=== PATIENT | female | born 1980 | race Caucasian/White ===

== ENCOUNTER 2021-09-01 08:53 | Emergency (ER) | payer OTHER ==
--- NOTE | 2021-09-01 10:06 | ED Physician Documentation ---
PD HPI CHEST PAIN - Stated complaint Stated Complaint: CHEST/THROAT PX/TIRED - Chief complaint Chief Complaint: Cardiac - History obtained from History obtained from: Patient, Family - Additional information Additional information: Pt comes to the ED with CC of episodes of pain that start in the back of her throat and radiate to her upper back. Sometimes she has some associated chest discomfort. She states the sensation is brief and a shooting pain. She states she often feels panicky when it happens. Pt has been worked up previously for this, and work-up has been negative. Pt has no pain right now. states that pt seems to have sx when she is under a lot of stress. Pt tearfully agrees, and admits to heavy stress for the past 6 months. They just moved here a few months ago with the [employer]. Pt denies h/o smoking, HTN, or DM. She has had significant weight gain in the past 2 years. H/o CAD in mom's siblings, but not in pt's mom. Siblings were all smokers and otherwise unhealthy, however, pt states, and her mother is not. Review of Systems Ten Systems: 10 systems reviewed and negative Constitutional: reports: Reviewed and negative Eyes: reports: Reviewed and negative Ears: reports: Reviewed and negative Nose: reports: Reviewed and negative Throat: reports: Other (Episodic throat pain) Cardiac: reports: Chest pain / pressure Respiratory: reports: Reviewed and negative GI: reports: Reviewed and negative : reports: Reviewed and negative Skin: reports: Reviewed and negative Musculoskeletal: reports: Reviewed and negative Neurologic: reports: Reviewed and negative Psychiatric: reports: Reviewed and negative Endocrine: reports: Reviewed and negative Immunocompromised: reports: Reviewed and negative PD PAST MEDICAL HISTORY - Past Medical History Past Medical History: Yes Cardiovascular: None Respiratory: None Neuro: Migraines Endocrine/Autoimmune: None GI: GERD, 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 HEENT: None Psych: Anxiety Musculoskeletal: None Derm: None - Past Surgical History Past Surgical History: Yes /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: No - Immunizations Immunizations are current?: Yes PD ED PE NORMAL - Vitals Vital signs reviewed: Yes - General General: Alert and oriented X 3, No acute distress, Well developed/nourished - HEENT HEENT: Atraumatic, PERRL, EOMI, Moist mucous membranes - Neck Neck: Supple, no meningeal sign - Cardiac Cardiac: RRR, No murmur, Strong equal pulses - Respiratory Respiratory: No respiratory distress, Clear bilaterally - Abdomen Abdomen: Soft, Non tender, Non distended - Derm Derm: Normal color, Warm and dry, No rash - Extremities Extremities: No deformity, No edema, No calf tenderness / cord - Neuro Neuro: Alert and oriented X 3, grinder set up operator 2-12 intact, Normal speech - Psych Psych: Normal mood (Occasionally tearful), Normal affect Results - Vitals Vitals: Oxygen O2 Source Room air - EKG (time done) 0905 Rate: Rate (enter#) (66) Rhythm: NSR [place]: Normal Intervals: Normal NH QRS: LVH Ischemia: Normal ST segments, Other Compare to prior EKG: Old EKG unavailable Computer interpretation: Disagree with computer (disagree with inferior ischemia.) - Labs Labs: Laboratory Tests 09/01/21 09/01/21 09/01/21 10:11 10:11 10:11 WBC 7.8 RBC 4.46 Hgb 12.7 Hct 39.2 MCV 87.9 MCH 28.5 MCHC 32.4 RDW 13.2 Plt Count 272 MPV 9.1 Neut # (Auto) 5.5 Lymph # (Auto) 1.9 [place] # (Auto) 0.4 Eos # (Auto) 0.0 Baso # (Auto) 0.0 Absolute Nucleated RBC 0.00 Nucleated RBC % 0.0 Sodium 139 Potassium 4.4 Chloride 106 Carbon Dioxide 24 Anion Gap 9.0 BUN 11 Creatinine 0.9 Estimated GFR (MDRD) 69 L Glucose 105 H Calcium 8.7 Total Bilirubin 0.4 AST 15 ALT 16 Alkaline Phosphatase 42 Troponin I High Sens 2.7 Total Protein 6.8 Albumin 3.6 Globulin 3.2 Albumin/Globulin Ratio 1.1 Lipase 34 - Rads (name of study) CXR Radiology: Final report received, EMP read indepedently, See rad report (nad) PD MEDICAL DECISION MAKING - ED course Complexity details: reviewed results, re-evaluated patient, considered differential, d/w patient, d/w family ED course: The patient was worked up with EKG and laboratory studies. The work-up was negative. Pt was doing well, and less emotionally distraught on re-eval. We have discussed the need for follow-up to discuss stress test. We have also discussed the usual indications for return. Departure - Departure Disposition: Home, Self Care Clinical Impression: Atypical chest pain Condition: Stable Instructions: ED Chest Pain Atypical Unkn Cause Comments: Your laboratory studies all look good, as your EKG and chest x-ray. It is not clear what is causing the pain you have in your throat, chest, and back, but there is no evidence at this time of an emergent cause. Additionally, you are very low risk for cardiac coronary artery disease further lowering the likelihood of this. However, since this is been going on on and off for a year and you do have some family members with history of heart attack, it would be good for you to follow-up with your primary care physician and discuss having a stress test done to close the loop completely on the possibility of coronary artery disease. Please call first thing tomorrow morning to make that appointment. Please also consider whether seeing a mental health provider of some sort would help you with some of the stress and anxiety you are having, and help you to cope more constructively with these. You may discuss this with your primary doctor also. If you develop severe chest pain that is unremitting, especially if associated with severe shortness of breath and nausea, please return to the emergency department immediately. Discharge Date/Time: 09/01/21 11:34
[2021-09-01 10:15] LABS: BASOPHILS % (AUTO) 0.4 %; EOSINOPHILS % (AUTO) 0.5 %; HCT - HEMATOCRIT 39.2 % (37.0-47.0); HGB - HEMOGLOBIN 12.7 g/dL (12.0-16.0); LYMPHOCYTES # (AUTO) 1.9 10^3/uL (1.5-3.5); LYMPHOCYTES % (AUTO) 23.9 %; MEAN CORPUSCULAR HEMOGLOBIN 28.5 pg (27.0-31.0); MEAN CORPUSCULAR HGB CONC 32.4 g/dL (32.0-36.0); MEAN CORPUSCULAR VOLUME 87.9 fL (81.0-99.0); MEAN PLATELET VOLUME 9.1 fL (7.9-10.8); MONOCYTES # (AUTO) 0.4 10^3/uL (0.0-1.0); MONOCYTES % (AUTO) 5.4 %; NEUTROPHILS # (AUTO) 5.5 10^3/uL (1.5-6.6); NEUTROPHILS % (AUTO) 69.5 %; PLT - PLATELET COUNT 272 10^3/uL (130-450); RED BLOOD COUNT 4.46 10^6/uL (4.20-5.40); RED CELL DISTRIBUTION WIDTH 13.2 % (12.0-15.0); WHITE BLOOD COUNT 7.8 x10^3/uL (4.8-10.8)
[2021-09-01 10:27] LABS: ALBUMIN 3.6 g/dL (3.2-5.5); ALBUMIN/GLOBULIN RATIO 1.1 (1.0-2.2); BILIRUBIN,TOTAL 0.4 mg/dL (0.2-1.0); CALCIUM 8.7 mg/dL (8.5-10.3); CREATININE 0.9 mg/dL (0.4-1.0); POTASSIUM 4.4 mmol/L (3.5-5.0); TOTAL PROTEIN 6.8 g/dL (6.7-8.2)
--- NOTE | 2021-09-01 10:32 | XRAY Report ---
PROCEDURE: Chest 1 View X-Ray INDICATIONS: chest pain COMMENTS: CHEST PAIN PRIORS: NONE TECHNIQUE: One view of the chest was acquired. COMPARISON: None FINDINGS: Surgical changes and devices: None. Lungs and pleura: No pleural effusions or pneumothorax. Lungs are clear. Mediastinum: Mediastinal contours appear normal. Heart size is normal. Bones and chest wall: No suspicious bony lesions. Overlying soft tissues appear unremarkable. IMPRESSION: No acute cardiopulmonary abnormality. Reviewed by: Justen Crowder on 09/01/2021 10:31 AM PDT Approved by: Justen Crowder on 09/01/2021 10:31 AM PDT Station ID: [id number]
[2021-09-01 11:07] VITALS: BP 132/83
== END 2021-09-01 11:34 | disposition home or self-care (01) ==
LOC: ED 08:53
DX: R07.89 Other chest pain (principal); Z87.891 Personal history of nicotine dependence
CPT/HCPCS: 36415; 80053; 83690; 84484; 85025; 93005; 99282; 99284

== ENCOUNTER 2022-04-09 19:48 | Emergency (ER) | payer OTHER ==
[2022-04-09] MEDS ORDERED: GLUCAGON 1 MG/ML VIAL IVP STA ×2 (20:04→20:32)
--- NOTE | 2022-04-09 20:16 | ED Physician Documentation ---
History of Present Illness - Stated complaint Stated Complaint: FOOD STUCK IN THROAT - Chief complaint Chief Complaint: General - History obtained from History obtained from: Patient - Additonal information Additional information: 41-year-old woman with history of reflux, has been noncompliant with omeprazole for the last few months and is also bulimic. 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 She been having increasing trouble lately and tonight after swallowing chicken it got stuck and now cannot swallow anything. 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 - Present Medications Home Medications: Ambulatory Orders Medication Instructions Recorded Confirmed Melatonin 5 mg PO HS 09/01/21 04/09/22 Multivitamin/Iron/Folic Acid 1 each PO DAILY 09/01/21 04/09/22 [Centrum Women Tablet] Omeprazole Magnesium 20 mg PO DAILY 09/01/21 04/09/22 Omeprazole 40 mg PO DAILY #30 cap 04/09/22 - Allergies Allergies/Adverse Reactions: Allergies Allergy/AdvReac Type Severity Reaction Status Date / Time No Known Drug Allergies Allergy Verified 04/09/22 19:52 - Social History Does the pt smoke?: No Smoking Status: Never smoker Does the pt drink ETOH?: Yes Does the pt have substance abuse?: No - Immunizations Immunizations are current?: Yes PD ED PE NORMAL - Vitals Vital signs reviewed: Yes - General General: Alert and oriented X 3, No acute distress - HEENT HEENT: Pharynx benign - Neck Neck: Supple, no meningeal sign, No bony TTP - Cardiac Cardiac: RRR, No murmur - Respiratory Respiratory: No respiratory distress, Clear bilaterally - Abdomen Abdomen: Non tender - Back Back: No CVA TTP, No spinal TTP - Derm Derm: Normal color, Warm and dry - Extremities Extremities: No edema, No calf tenderness / cord - Neuro Neuro: Alert and oriented X 3, Normal speech Results - Vitals Vitals: Vital Signs - 24 hr 04/09/22 04/09/22 19:52 21:06 Temperature 36.5 C Heart Rate 100 98 Respiratory 16 16 Rate Blood Pressure 150/90 H 172/102 H O2 Saturation 99 97 Oxygen O2 Source Room air - Labs Labs: Laboratory Tests 04/09/22 20:10 Serum HCG, Qual NEGATIVE PD Medical Decision Making - ED course ED course: 41-year-old woman with recurrent esophageal food impaction. After 2 doses of glucagon the food impaction cleared and she passed a p.o. challenge. Close follow-up advised and we will refill her omeprazole and encouraged her to take it. Departure - Departure Disposition: Home, Self Care Clinical Impression: Esophageal obstruction due to food impaction Condition: Good Record reviewed to determine appropriate education?: Yes Instructions: ED Foreign Body Esophageal Rslv Prescriptions: Omeprazole 40 mg PO DAILY #30 cap Comments: You were seen tonight for an esophageal food impaction. We were able to clear it after a second dose of glucagon. I am refilling her omeprazole and encouraged her to eat a fairly soft diet. Follow-up with your primary care physician for consideration for GI referral and consideration for upper endoscopy. Return for new or worsening symptoms. Discharge Date/Time: 04/09/22 21:06
[2022-04-09 20:53] LABS: HCG,QUALITATIVE BLOOD NEGATIVE
[2022-04-09 21:07] VITALS: BP 172/102
== END 2022-04-09 21:06 | disposition home or self-care (01) ==
LOC: ED 19:48
DX: K22.2 Esophageal obstruction (principal)
CPT/HCPCS: 36415; 84703; 96374; 99283

== ENCOUNTER 2022-11-23 17:49 | Emergency (ER) | payer OTHER ==
--- OUTSIDE RECORDS SUMMARY | 2022-11-23 18:19 | EXTERNAL MEDICAL SUMMARY RPT | Continuity of Care Document ---
Author Name Unknown Address [address] [place] [address] Phone Organization [place] Address [address] [place] [address] Phone Care Team Providers Care Strap Machine Operator Name Role Phone Unavailable Unavailable Unavailable Jared Rahman Unavailable Unavailable Allergies and Intolerances date description facility reaction severity (no date) No Known Drug Allergies [facility] (no brady ction) (no severity) Medications date description facility 2022-10-07 00:00 Melatonin [facility] 2022-10-07 00:00 Fluoxetine [facility] 2022-10-07 00:00 Pantoprazole [facility] 2022-10-07 00:00 [facility] Problems date description facility 2022-10-07 08:26 Gastro-esophageal reflux diseas e without esophagitis [facility] 2022-10-07 08:26 Villasenor's esophagus without dys plasia [facility] 2022-10-07 08:26 Dysphagia, unspecified [facility] 2022-10-07 08:35 Gastro-esophageal reflux diseas e without esophagitis [facility] 2022-10-07 08:35 Villasenor's esophagus without dys plasia [facility] 2022-10-07 08:35 Dysphagia, unspecified [facility] 2022-10-07 09:10 Gastro-esophageal reflux diseas e without esophagitis [facility] 2022-10-07 09:10 Villasenor's esophagus without dys plasia [facility] 2022-10-07 09:10 Dysphagia, unspecified [facility] 2022-10-07 09:46 Gastro-esophageal reflux diseas e without esophagitis [facility] 2022-10-07 09:46 Villasenor's esophagus without dys plasia [facility] 2022-10-07 09:46 Dysphagia, unspecified [facility] 2022-10-07 09:56 Gastro-esophageal reflux diseas e without esophagitis [facility] 2022-10-07 09:56 Villasenor's esophagus without dys plasia [facility] 2022-10-07 09:56 Dysphagia, unspecified [facility] 2022-10-07 10:13 Gastro-esophageal reflux diseas e without esophagitis [facility] 2022-10-07 10:13 Villasenor's esophagus without dys [facility] 2022-10-07 10:13 Dysphagia, unspecified [facility] Procedures date description facility 2022-10-07 00:00 Esophagogastroduodenoscopy [facility] Results/Labs test date facility value unit notes Social History date description facility 2022-10-07 00:00 Never smoked tobacco (finding) [facility] Vital Signs date measurement value units 2022-10-07 00:00 BMI 37.8 kg/m2 2022-10-07 00:00 BP_diastolic 86 mmHg 2022-10-07 00:00 BP_systolic 133 mmHg 2022-10-07 00:00 heart_rate 62 /min 2022-10-07 00:00 height_metric 162.56 cm 2022-10-07 00:00 height_standard 64 in 2022-10-07 00:00 o2_saturation 94 % 2022-10-07 00:00 respiration_rate 14 /min 2022-10-07 00:00 temperature_metric 36.11 C 2022-10-07 00:00 temperature_standard 97 F 2022-10-07 00:00 weight_metric 99.79 kg 2022-10-07 00:00 weight_standard 220 lb
[2022-11-23] MEDS ORDERED: DROPERIDOL 5 MG/2 ML VIAL IVP STA (20:00)
--- NOTE | 2022-11-23 20:02 | ED Physician Documentation ---
History of Present Illness - Stated complaint Stated Complaint: MEADE,HOT/COLD FLASHES - Chief complaint Chief Complaint: General - History obtained from History obtained from: Patient - Additonal information Additional information: 42-year-old woman with history of diastolic dysfunction on statin, Prozac, and recently switched from carvedilol to losartan just a few days ago. Also was recently on a steroid taper and amoxicillin for sinus infection. She woke up this morning and had an episode where she felt odd sensation go from her chest down to her pelvis then up to her head. Lasted about a minute and was associated with the onset of strange smell and taste. The strange smell and taste has been persistent all day, and she has had 6 more episodes of this other sensation. It is associated with a moderate headache, not the worst of her life. There is mild light sensitivity with it. She denies any possibility of due to abstinence. 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 - Present Medications Home Medications: Ambulatory Orders Medication Instructions Recorded Confirmed Melatonin 5 mg PO HS 09/01/21 04/09/22 Multivitamin/Iron/Folic Acid 1 each PO DAILY 09/01/21 04/09/22 [Centrum Women Tablet] Omeprazole Magnesium 20 mg PO DAILY 09/01/21 04/09/22 Omeprazole 40 mg PO DAILY #30 cap 04/09/22 - Allergies Allergies/Adverse Reactions: Allergies Allergy/AdvReac Type Severity Reaction Status Date / Time No Known Drug Allergies Allergy Verified 04/09/22 19:52 - Social History Does the pt smoke?: No Smoking Status: Never smoker Does the pt drink ETOH?: Yes Does the pt have substance abuse?: No - Immunizations Immunizations are current?: Yes PD ED PE NORMAL - Vitals Vital signs reviewed: Yes - General General: Alert and oriented X 3, No acute distress - HEENT HEENT: PERRL, EOMI - Neck Neck: Supple, no meningeal sign, No bony TTP - Cardiac Cardiac: RRR, No murmur - Respiratory Respiratory: No respiratory distress, Clear bilaterally - Abdomen Abdomen: Non tender - Back Back: No CVA TTP, No spinal TTP - Derm Derm: Normal color, Warm and dry - Extremities Extremities: No deformity, No tenderness to palpate, Normal ROM s pain, No edema, No calf tenderness / cord - Neuro Neuro: Alert and oriented X 3, supervisor forming and tempering 2-12 intact, No motor deficit, No sensory deficit, Normal speech, Other (Normal finger-nose and [id number] testing) Eye Opening: Spontaneous Motor: Obeys Commands Verbal: Oriented GCS Score: 15 Results - Vitals Vitals: Vital Signs - 24 hr 11/23/22 17:55 Temperature 36.6 C Heart Rate 82 Respiratory 20 Rate Blood Pressure 170/94 H O2 Saturation 97 Oxygen O2 Source Room air - Labs Labs: Laboratory Tests 11/23/22 11/23/22 20:11 20:11 WBC 17.8 H RBC 5.72 H Hgb 15.8 Hct 49.2 H MCV 86.0 MCH 27.6 MCHC 32.1 RDW 15.1 H Plt Count 321 MPV 9.1 Neut # (Auto) 13.5 H Lymph # (Auto) 3.0 [place] # (Auto) 0.9 Eos # (Auto) 0.1 Baso # (Auto) 0.1 Absolute Nucleated RBC 0.00 Nucleated RBC % 0.0 Sodium 134 L Potassium 4.0 Chloride 98 L Carbon Dioxide 27 Anion Gap 9.0 BUN 15 Creatinine 0.7 Estimated GFR (MDRD) 91 Glucose 89 Calcium 9.2 Total Bilirubin 0.7 AST 14 ALT 20 Alkaline Phosphatase 88 Total Protein 7.7 Albumin 4.6 Globulin 3.1 Albumin/Globulin Ratio 1.5 PD Medical Decision Making - ED course ED course: 42-year-old woman with odd set of symptoms consisting of waves going through her body that are painless , mild headache, and strange smell and taste with normal exam. Really does not fit the pattern of any emergency medical condition. Vascular issues considered, but she has normal pedal perfusion and radial pulses and no lasting chest pain or radiating to the back. Atypical migraine certainly a possibility. CBC showing nonspecific elevated white count, but there is really no evidence of infection so could be demargination/stress response. CMP normal. Given the concern for migraine 2.5 mg of droperidol was ordered and after which all the symptoms she came in for were abated, although she did have some side effects of feeling heavy and dry mouth. Departure - Departure Disposition: Home, Self Care Clinical Impression: Taste sense altered, Smell disturbance Condition: Good Record reviewed to determine appropriate education?: Yes Comments: Given response to the medication and very odd symptoms I would presume this was an atypical migraine. Return if symptoms recur. Do not drink or drive tonight. The only abnormal test tonight was the elevated white blood cell count which is nonspecific and can be from stress. Follow-up with your doctor, they may want to repeat it. Specifically was 17.8. Call your doctor to arrange a follow-up appointment, make the next available appointment. In the interim, return anytime if worse or if new symptoms develop. I am prescribing a short course of narcotic pain medication for you. These are potentially dangerous and addictive medications that should be used carefully. These medications may constipate you. Take an [id number] stool softener (docusate) twice daily with plenty of water while taking these medications. If you go 24 hours without a bowel movement, take [id number] miralax, per package instructions. Do not drink or drive while taking these medications. If you received narcotic or sedating medications while in the emergency department, do not drive for 24 hours. Store this medication in a safe, secure place and out of reach of children. It is a violation of federal law to give or sell this medication to another person or to use in a manner other than prescribed. The ED will not refill narcotic prescriptions, including prescriptions lost or stolen. To dispose of unwanted medications: 1. [facility] provides a [facility] box for medication in pill form only (no liquids) 8:00 am to 4:30 p.m. Wednesday-Wednesday in the lobby of the [facility], [address] [place] [address]. Empty pills into ziplock bag before disposal. Call [phone] for information. 2.[employer] is a free service available to all [facility] residents. Go to [email or web address]/ Note that many narcotic pain relievers also contain Tylenol/acetaminophen. Please ensure that your total dose of acetaminophen from all sources does not exceed 3 g (3000 mg) per day. Forms: PCP List
[2022-11-23 20:17] LABS: BASOPHILS # (AUTO) 0.1 10^3/uL (0.0-0.1); BASOPHILS % (AUTO) 0.4 %; EOSINOPHILS # (AUTO) 0.1 10^3/uL (0.0-0.7); EOSINOPHILS % (AUTO) 0.4 %; HCT - HEMATOCRIT 49.2 % (37.0-47.0); HGB - HEMOGLOBIN 15.8 g/dL (12.0-16.0); LYMPHOCYTES % (AUTO) 16.9 %; MEAN CORPUSCULAR HEMOGLOBIN 27.6 pg (27.0-31.0); MEAN CORPUSCULAR HGB CONC 32.1 g/dL (32.0-36.0); MEAN PLATELET VOLUME 9.1 fL (7.9-10.8); MONOCYTES # (AUTO) 0.9 10^3/uL (0.0-1.0); MONOCYTES % (AUTO) 5.2 %; NEUTROPHILS # (AUTO) 13.5 10^3/uL (1.5-6.6); NEUTROPHILS % (AUTO) 75.8 %; PLT - PLATELET COUNT 321 10^3/uL (130-450); RED BLOOD COUNT 5.72 10^6/uL (4.20-5.40); RED CELL DISTRIBUTION WIDTH 15.1 % (12.0-15.0); WHITE BLOOD COUNT 17.8 x10^3/uL (4.8-10.8)
[2022-11-23 20:30] LABS: ALBUMIN 4.6 g/dL (3.2-5.5); ALBUMIN/GLOBULIN RATIO 1.5 (1.0-2.2); BILIRUBIN,TOTAL 0.7 mg/dL (0.2-1.0); CALCIUM 9.2 mg/dL (8.5-10.3); CREATININE 0.7 mg/dL (0.6-1.3); TOTAL PROTEIN 7.7 g/dL (6.4-8.9)
[2022-11-23 21:20] LABS: THYROID STIMULATING HORMONE 1.96 uIU/mL (0.34-5.60)
[2022-11-23 21:31] VITALS: BP 150/88; O2SAT 98
== END 2022-11-23 21:22 | disposition home or self-care (01) ==
LOC: ED 17:49
DX: R43.8 Other disturbances of smell and taste (principal); R51.9 Headache, unspecified; Z79.899 Other long term (current) drug therapy
CPT/HCPCS: 36415; 80053; 84443; 85025; 96374; 99283

== ENCOUNTER 2022-11-24 11:54 | Emergency (ER) | payer OTHER ==
[2022-11-24 12:23] VITALS: O2SAT 98
--- OUTSIDE RECORDS SUMMARY | 2022-11-24 12:36 | EXTERNAL MEDICAL SUMMARY RPT | Continuity of Care Document ---
Author Name Unknown Address [address] [place] [address] Phone Organization [place] Address [address] [place] [address] Phone Care Team Providers Care Batt Machine Operator Name Role Phone Unavailable Unavailable Unavailable Jared Rahman Unavailable Unavailable Allergies and Intolerances date description facility reaction severity (no date) No Known Drug Allergies [facility] (no brady ction) (no severity) Medications date description facility 2022-10-07 00:00 [facility] 2022-10-07 00:00 [facility] 2022-10-07 00:00 Pantoprazole [facility] 2022-10-07 00:00 [facility] Problems date description facility 2022-10-07 08:26 Gastro-esophageal reflux diseas e without esophagitis [facility] 2022-10-07 08:26 Villasenor's esophagus without dys plasia [facility] 2022-10-07 08:26 Dysphagia, unspecified [facility] 2022-10-07 08:35 Gastro-esophageal reflux diseas e without esophagitis [facility] 2022-10-07 08:35 Villasenor's esophagus without dys plasia [facility] 2022-10-07 08:35 Dysphagia, unspecified [facility] 2022-10-07 09:10 Gastro-esophageal reflux diseas e without esophagitis [facility] 2022-10-07 09:10 Villasenor's esophagus without dys plasia [facility] 2022-10-07 09:10 Dysphagia, unspecified [facility] 2022-10-07 09:46 Gastro-esophageal reflux diseas e without esophagitis [facility] 2022-10-07 09:46 Villasenor's esophagus without dys plasia [facility] 2022-10-07 09:46 Dysphagia, unspecified [facility] 2022-10-07 09:56 Gastro-esophageal reflux diseas e without esophagitis [facility] 2022-10-07 09:56 Villasenor's esophagus without dys plasia [facility] 2022-10-07 09:56 Dysphagia, unspecified [facility] 2022-10-07 10:13 Gastro-esophageal reflux diseas e without esophagitis [facility] 2022-10-07 10:13 Villasenor's esophagus without dys plasia [facility] 2022-10-07 10:13 Dysphagia, unspecified [facility] Procedures date description facility 2022-10-07 00:00 Esophagogastroduodenoscopy [facility] Results/Labs test date facility value unit notes Social History date description facility 2022-10-07 00:00 Never smoked tobacco (finding) [facility] Vital Signs date measurement value units 2022-10-07 [...]
[2022-11-24] MEDS ORDERED: LORazepam 1 MG TABLET PO STA (14:11)
--- NOTE | 2022-11-24 14:40 | ED Physician Documentation ---
History of Present Illness - Stated complaint Stated Complaint: MIGRAINE - Chief complaint Chief Complaint: General - History obtained from History obtained from: Patient - Additonal information Additional information: Patient is a 42-year-old female presenting for evaluation of feeling restless today and feeling her anxiety being high. Patient reports being here last night for various symptoms and was given a dose of droperidol which helped relieve those symptoms. However since that time she has been feeling very restless, having trouble sleeping, feeling high anxiety levels. She feels a generalized heaviness in her chest but denies chest pain or feeling short of air. She reports feeling like she needed to keep moving this morning like doing housework. Has a history of anxiety and is on duloxetine. Reports having had panic attacks in the past that feels similar to this but it has been a long time. Does not currently have a psychiatrist. Review of Systems Constitutional: denies: Fever Cardiac: denies: Chest pain / pressure Respiratory: denies: Dyspnea GI: denies: Abdominal Pain Psychiatric: reports: Anxiety. 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 : None HEENT: None Psych: Anxiety Musculoskeletal: None Derm: None - Past Surgical History Past Surgical History: Yes /LAMP TESTER AND INSPECTOR: Other - Present Medications Home Medications: Ambulatory Orders Medication Instructions Recorded Confirmed Melatonin 5 mg PO HS 09/01/21 04/09/22 Multivitamin/Iron/Folic Acid 1 each PO DAILY 09/01/21 04/09/22 [Centrum Women Tablet] Omeprazole Magnesium 20 mg PO DAILY 09/01/21 04/09/22 Omeprazole 40 mg PO DAILY #30 cap 04/09/22 LORazepam [Ativan] 1 mg PO TID PRN #12 tablet 11/24/22 - Allergies Allergies/Adverse Reactions: Allergies Allergy/AdvReac Type Severity Reaction Status Date / Time No Known Drug Allergies Allergy Verified 11/24/22 12:19 - Social History Does the pt smoke?: No Smoking Status: Never smoker Does the pt drink ETOH?: Yes Does the pt have substance abuse?: No - Immunizations Immunizations are current?: Yes PD ED PE NORMAL - General General: Alert and oriented X 3, No acute distress, Well developed/nourished - HEENT HEENT: Atraumatic - Neck Neck: Supple, no meningeal sign - Cardiac Cardiac: RRR, No murmur - Respiratory Respiratory: No respiratory distress, Clear bilaterally - Abdomen Abdomen: Soft, Non tender - Derm Derm: Warm and dry - Neuro Neuro: Alert and oriented X 3, No motor deficit, Normal speech Results - Vitals Vitals: Vital Signs - 24 hr 11/24/22 11/24/22 12:19 16:21 Temperature 36.5 C 36.5 C Heart Rate 100 88 Respiratory 16 16 Rate Blood Pressure 136/90 H 130/88 H O2 Saturation 98 98 Oxygen O2 Source Room air - EKG (time done) 1426 EKG releavant findings:: EKG personally interpreted by author of this note. Relevant findings are: Rate 92, normal sinus rhythm, no STEMI, no ST depressions Rate: Rate (enter#) (92) Rhythm: NSR Ischemia: No: ST elevation c/w ischemia PD Medical Decision Making - ED course Complexity details: re-evaluated patient, d/w patient, d/w family ED course: Patient is a 42-year-old female presenting for evaluation of feeling elevated anxiety, having difficulty and sitting down. And feeling very restless.She was given droperidol last night for other symptoms which have since resolved but has been feeling this way since last night. She does have a history of anxiety and panic attacks and does not have any rescue medications. Denies SI or HI. Does not appear to be acutely psychotic. Labs from last night were obtained and reviewed with mild leukocytosis. Denies infectious symptoms such as cough, abdominal symptoms, dysuria. Patient was given a dose of p.o. Ativan and still felt some anxiety so was also given a dose of p.o.Hydroxyzine with improvement in her symptoms. She does not currently have a counselor. She was encouraged to [facility] and to [facility] services. I did prescribe a small amount of Ativan to use as needed. Patient is counseled on concerning symptoms to return for. Departure - Departure Disposition: 01 Home, Self Care Clinical Impression: Panic attack Condition: Stable Instructions: ED Panic Attack Follow-Up: AAKASH Cabrera [Provider Group] Prescriptions: LORazepam [Ativan] 1 mg PO TID PRN #12 tablet PRN Reason: Anxiety Comments: I believe your symptoms today are related to anxiety and stress. We gave you a dose of Ativan as well as hydroxyzine to help with your symptoms and this does seem to be helping. I have sent a small prescription for Ativan to the [facility] in [place]. This medicine can be sedating so do not recommend driving while taking this medication. Please use only if needed. I would vilma mmend calling your primary care provider for close follow-up and referral to Counseling services. Return to the ER with any worsening symptoms. Follow-up with [facility] at [phone] to schedule psychiatric care and counseling. Forms: PCP List Discharge Date/Time: 11/24/22 16:21
[2022-11-24] MEDS ORDERED: hydrOXYzine PAMOATE 25 MG CAPSULE PO STA (14:50)
[2022-11-24 16:23] VITALS: BP 130/88
== END 2022-11-24 16:21 | disposition home or self-care (01) ==
LOC: ED 11:54
DX: F41.0 Panic disorder [episodic paroxysmal anxiety] (principal); K21.9 Gastro-esophageal reflux disease without esophagitis; Z79.899 Other long term (current) drug therapy
CPT/HCPCS: 93005; 99283; 99284

== ENCOUNTER 2023-09-21 13:34 | Outpatient (CLI) | payer OTHER ==
--- NOTE | 2023-09-21 18:57 | SLEEP CARE CONSULTATION ---
Information from patient questionnaire entered by Xi Khan. I have reviewed and concur with the information entered by Xi Khan. This document represents the service I personally performed and the decisions made by me, Clare Gaston ARNP. History of Present Illness Service Date and Time: 09/21/2023 1334 Reason for Visit: New patient Chief Complaint: reports: Snoring, Fatigue Date of Onset: NOT SURE Usual bedtime: 7568-2876 Time it takes to fall asleep: 15-30MINS Snores at night: Yes Observed to quit breathing while asleep: No Sleeps alone due to snoring: No Number of times waking at night: 1 Reasons for waking at night: reports: Bathroom, Other (UNKNOWN, PETS). denies: Choking, Gasping for air Toss, Turn, or Twitch while sleeping: Yes Recalls having dreams: Yes Usually gets out of bed at: 1500-2347 Feels refreshed in the morning: Yes Morning headache: No Sleepy or fatigued during the day: Yes (taking supplements Vit D, calcium, iron because levels low) Ever fallen asleep while driving: No Takes day naps: Yes (not much since starting supplements) Dreams during day naps: Yes Prior sleep studies: No Additional HPI information: I had the pleasure of seeing JERSON PONCE today regarding the possibility of her having a sleep disorder. Her current complaints are snoring and fatigue. She says she is in the process of getting bariatric surgery and they want her to do a sleep study. She says her tells her that she snores lightly and more when she has a stuffy nose in the winter. - Parasomnia Symptoms Ever been unable to move upon waking from sleep: No Walks in sleep: No Talks in sleep: Yes Ever acted out dreams in sleep: No Ever felt weak in the knees when startled or emotional: No Bothered by creepy, crawly, restless sensations in legs: Yes ("kolby horses" back of legs; tingling in legs/feet occasionally) Problems with memory or concentration: No Subjective Initial [place] Sleepiness Scale score: 4 (09/21/23) Past Medical History Past Medical History: reports: Hypertension, Anxiety, GERD Social History The patient's occupation is a [employer]. Patient is and lives in [place]. Have you smoked in the past 12 months: No Alcohol use: No Caffeine use: No Family History Family history of sleep disordered breathing: No (Aunt on PAP device) Allergies and Home Medications Known drug allergies: No Drug allergies reviewed: Yes Home medication list reviewed: Yes (as listed) Allergy and home medication list: Allergies No Known Drug Allergies Allergy (Verified 09/16/23 08:58) Medications: Losartan 25 mg tab (1/2 tab daily) Carvedilol 3.125 mg twice daily Atorvastatin 20 mg daily Omeprazole 20 mg daily Citracal Petites Calcium +D3, 2 tabs Centrum's MVT Petites, 2 tabs daily Vitamin D3 4 tabs/50 mcg daily Ferrous Sulfate 325 mg daily Review of Systems Weight gain over past 5 years: 42 Cardiovascular: reports: high blood pressure Respiratory: reports: shortness of breath (with activity) Gastrointestinal: reports: heartburn Psychiatric: reports: anxiety Ear/Nose/Throat: reports: wisdom teeth removed. denies: tonsillectomy Endocrine: reports: sluggishness Musculoskeletal: reports: neck pain Immunologic: reports: allergies to food or environment (seasonal) Physical Exam Vital signs obtained and entered by: XI He MA Blood Pressure: 165/88 Cuff size: regular Heart Rate: 59 O2 Saturation: 99 Height: 5 ft 4 in Weight: 254 lb 6.4 oz Body Mass Index: 43.7 BMI Classification: Morbidly Obese Neck circumference: 17 Mouth and throat: narrow oropharynx Soft palate: long Hard palate: normal Uvula: normal Uvula visualization: 25% Mallampati Class III Tongue: enlarged in size with teeth marvin on lateral edges Tonsils: 1+ Neck: normal w/o lymphadenopathy or thyromegaly Heart: regular rate and rhythm Lungs: clear bilaterally Impression and Plan 1. Suspected Obstructive Sleep Apnea-Hypopnea Syndrome, as suggested by a history of loud and irregular snoring, and fatigue. Narrow oropharynx and obesity are common predisposing factors for obstructive sleep apnea-hypopnea syndrome. I recommend proceeding to polysomnography to confirm the diagnosis and to assess severity. If the patient has significant sleep disordered breathing, a manual CPAP titration study will also be performed to find the optimal treatment pressure. I informed the patient of what the sleep studies involve and after some discussion, obtained agreement to proceed. The pathophysiology of obstructive sleep apnea-hypopnea syndrome was discussed with the patient and health risks of cardiovascular and cerebrovascular disease if not treated. Risks of drowsy driving discussed in detail and patient advised to avoid long distance driving and to machine puller and laster at the first sign of drowsiness. Patient agreed to plan. * Schedule polysomnography. * Avoid long distance driving or driving when feeling sleepy. * Avoid alcohol, sedative and muscle relaxant around bedtime. * Attempt to lose weight. * Review instructions provided by trained office staff on how to prepare for the sleep study. * Return for follow-up after sleep study completed. Counseling Topics: Weight loss health impact Plan: PSG/HST and follow up Visit Type: In Office Time Spent with Patient (minutes): 31 Provider Statement: I spent 100% of the Face to Face Visit with the patient with greater than 50% spent counseling the patient and coordination of care.
[2023-09-21 19:04] VITALS: BP 165/88; O2SAT 99
== END 2023-09-21 13:35 | disposition home or self-care (01) ==
LOC: SC 13:34
PROVIDERS: ATTEND Nurse Practitioner Family
DX: R06.83 Snoring (principal); R53.83 Other fatigue; E66.01 Morbid (severe) obesity due to excess calories; Z68.41 Body mass index [BMI] 40.0-44.9, adult; I10 Essential (primary) hypertension
CPT/HCPCS: 99203; 99212

== ENCOUNTER 2023-10-29 20:28 | Outpatient (CLI) | payer OTHER | END 2023-10-29 20:29 | disposition home or self-care (01) | LOC: SC 20:28 | PROVIDERS: ATTEND Nurse Practitioner Family | DX: G47.33 Obstructive sleep apnea (adult) (pediatric) (principal); G47.61 Periodic limb movement disorder; E66.01 Morbid (severe) obesity due to excess calories; Z68.41 Body mass index [BMI] 40.0-44.9, adult | CPT/HCPCS: 95810 ==

== ENCOUNTER 2023-11-19 08:45 | Outpatient (CLI) | payer OTHER ==
--- NOTE | 2023-11-19 09:06 | Sleep Patient Instructions ---
Sleep Center Visit Summary - Patient Visit Information Reason for Visit: Sleep study follow-up - Patient Instructions Instructions Attached: CPAP Additional Instructions: You are being started on CPAP therapy with pressure setting at 4-15 cmH2O. You w ill need to call the sleep care office to set up your follow up once you have your CPAP machine to check compliance and response to therapy at that time. You may call the office with any concerns about pressure feeling too low or too much for adjustment, if needed. You should contact DME supplier for any questions or concerns about mask or equipment. Please call office to schedule a follow up appointment in the sleep care office one month after obtaining new device. - Clinic Information Contact: [facility] [address] [place] [address] [email or web address] T: [phone]
--- NOTE | 2023-11-19 09:08 | SLEEP CARE CONSULTATION ---
Information from patient questionnaire entered by Xi Khan. I have reviewed and concur with the information entered by Xi Khan. This document represents the service I personally performed and the decisions made by me, Clare Gaston ARNP. History of Present Illness Service Date and Time: 11/19/2023 0845 Initial [place] Sleepiness Scale score: 4 (09/21/23) Current [place] Sleepiness Scale score: 4 (11/19/23) Additional HPI information: JERSON PONCE returns for follow up and results of the recently performed polysomnography. The sleep study done on 10/29/23 showed mild obstructive sleep apnea with an average AHI of 7.9 and betsy oxygen saturation of 87%. She had mild PLMs contributing to sleep fragmentation. I explained the pathophysiology behind obstructive sleep apnea. We then spent quite a bit of time discussing different treatment options. For mild obstructive sleep apnea, surgery and oral appliance are alternatives to nasal CPAP therapy but in moderate or severe cases, nasal CPAP is the most effective and reliable treatment. Because apnea is primarily in supine position, then positional management therapy could be effective. Methods discussed such as positioning with pillows, using a T-shirt with tennis balls in the back or commercial products that have a pillow format on back to prevent supine sleep. I reviewed the impact of weight changes on sleep apnea and strongly recommended losing weight. After some discussion, the patient opted to go with the nasal CPAP therapy. Nasal autoCPAP set at 4-15 cmH20 will be ordered with rationale explained. A manual titration study will be ordered if unable to find optimal pressure with office adjustments. I explained how CPAP machine works and what to expect when using the machine. Using CPAP every night in order to get used to it was emphasized. Patient advised to put CPAP mask on before getting into bed so as not to fall asleep without CPAP. To assist acclimation to CPAP use, it could also be used for a short time during day while reading or watching TV. The patient was instructed to call the CPAP supplier to discuss any mechanical problem that may occur. If the mask given is uncomfortable or is difficult to keep on through the night even with adjustment, contact the CPAP supplier as many will replace with another mask style if notified before 30 days. If snoring or perceives is not getting enough air or too much air from the machine, notify this office. Patient does not drink alcohol. Patient was cautioned about risks of drowsy driving until sleepiness symptoms resolve. Patient denies drowsy driving. Sleep Study - Results Type of Sleep Study: Polysomnography (COMPLETED 10/29/23 MILD) Prior sleep studies: No Polysomnography/Home Sleep Study results: IMPRESSION: The quality of the study is good. The patient had normal sleep efficiency. Except for mild sleep fragmentation, the sleep architecture was normal. Respiratory monitoring showed mild obstructive sleep apneahypopnea (AHI = 7.9) associated with frequent arousals, oxyhemoglobin desaturation and mild hypoxia (betsy oxygen saturation of 87%). The respiratory events occurred almost exclusively during REM sleep (supine AHI = 11.5; non-supine = 6.05). Snore was light to loud in intensity. There was mild periodic leg movement of sleep, cont ributing to the sleep fragmentation. Cardiac rhythm was normal sinus rhythm without significant arrhythmia. No abnormal behavior (parasomnia) observed during the night. Allergies and Home Medications Known drug allergies: No Drug allergies reviewed: Yes Home medication list reviewed: Yes (hydroxyzine 10 mg, prn) Allergy and home medication list: Allergies No Known Drug Allergies Allergy (Verified 11/19/23 08:47) Review of Systems Review of systems same as previous: Yes (NO CHANGE) Physical Exam Vital signs obtained and entered by: XI He MA Blood Pressure: 131/92 (RIGHT ARM) Cuff size: long Heart Rate: 73 O2 Saturation: 96 Height: 5 ft 4 in Weight: 253 lb 9.6 oz Body Mass Index: 43.5 BMI Classification: Morbidly Obese Impression and Plan 1. Obstructive Sleep Apnea-Hypopnea Syndrome, mild, with lowest oxygen saturation of 87%. Obviously this is the cause of the patients symptoms of unrefreshed sleep, and excessive daytime sleepiness. Positive pressure therapy could benefit hypertension, anxiety and gastric reflux. As mentioned above, the patient will be started on nasal autoCPAP therapy with pressure set at 4-15 cmH2 O. A manual titration study will be completed if unable to find optimal treatment pressure with office adjustments. Compliance guidelines also reviewed. A copy of compliance guidelines will be given for reference at check out. Because the apnea is more severe supine, I instructed to avoid sleeping supine using pillow positioning until able to start CPAP use. 2. Periodic limb movement, mild, that did contribute to the fragmentation of patients sleep. Periodic limb movement of sleep (PLMS) is characterized by episodes of repetitive limb movements that occur during sleep and usually involve the lower limbs. The etiology is unknown. Patient was advised that no treatment is needed at this time. If symptoms increase, then further evaluation is indicated. 3. Obesity, unspecified. Currently patients BMI is 43.5. Obesity increases the risk of apnea, CPAP pressure requirements and overall health risks especially cardiovascular and diabetes. Thus patient is advised to lose weight. * Nasal auto CPAP therapy, pressure at 4-15 cm H2O. * Attempt to lose weight. * Avoid supine sleep until using CPAP. * The patient is again cautioned about driving until sleepiness completely resolves. * Return one month after CPAP obtained. I will assess response to therapy and compliance at that time. Counseling Topics: Weight loss health impact Prescriptions: Auto CPAP Plan: start CPAP and compliance followup Visit Type: In Office Time Spent with Patient (minutes): 20 Provider Statement: I spent 100% of the Face to Face Visit with the patient with greater than 50% spent counseling the patient and coordination of care.
[2023-11-19 09:11] VITALS: BP 131/92; O2SAT 96
== END 2023-11-19 08:46 | disposition home or self-care (01) ==
LOC: SC 08:45
PROVIDERS: ATTEND Nurse Practitioner Family
DX: G47.33 Obstructive sleep apnea (adult) (pediatric) (principal); G47.61 Periodic limb movement disorder; E66.01 Morbid (severe) obesity due to excess calories; Z68.41 Body mass index [BMI] 40.0-44.9, adult
CPT/HCPCS: 99212; 99213